=== PATIENT | female | born 1965 | race Two or more races ===

== ENCOUNTER 2023-07-17 19:23 | Emergency (ER) | payer MEDICAID ==
[~2023-07-17] VITALS: Ht 160 cm; Wt 78.0 kg
[2023-07-17 20:35] VITALS: BP 133/90; TEMP 98
[2023-07-17 21:00] VITALS: O2SAT 100
== END 2023-07-17 21:27 | disposition home or self-care (01) ==
LOC: ER 19:31
DX: S09.8XXA Other specified injuries of head, initial encounter (principal); Z90.5 Acquired absence of kidney; V49.9XXA Car occupant (driver) (passenger) injured in unspecified traffic accident, initial encounter; Y93.89 Activity, other specified; Y92.488 Other paved roadways as the place of occurrence of the external cause; Y99.8 Other external cause status